=== PATIENT | female | born 1990 | race Caucasian/White ===

== ENCOUNTER → 2023-03-12 | Outpatient (CLI) | payer OTHER | LOC: MHCPAIN 12:56 | DX: M54.50 Low back pain, unspecified (principal); M47.816 Spondylosis without myelopathy or radiculopathy, lumbar region | CPT/HCPCS: G0463 ==

== ENCOUNTER 2024-07-06 08:52 | Emergency (ER) | payer OTHER ==
[~2024-07-06] VITALS: Ht 170.2 cm; Wt 90.9 kg
[2024-07-06 09:04] VITALS: BP 112/77; TEMP 98
[2024-07-06] MEDS ORDERED: AMOXICILLIN 50500 MG PO (10:15)
[2024-07-06 10:29] VITALS: PULSE 93
== END 2024-07-06 10:29 | disposition home or self-care (01) ==
LOC: COL.ER 08:52
DX: J02.9 Acute pharyngitis, unspecified (principal)